=== PATIENT | female | born 1995 | race African-American/Black ===

== ENCOUNTER 2017-09-17 17:12 | Emergency (ER) | payer SELFPAY ==
[2017-09-17] MEDS ORDERED: ONDANSETRON 4 MG TAB.RAPDIS PO ONE (18:33)
--- NOTE | 2017-09-17 18:39 | ER Document Report ---
ED Medical Screen (RME) - General Chief Complaint: Nausea/Vomiting Stated Complaint: NAUSEA,VOMITING,BACK PAIN Time Seen by Provider: 09/17/17 18:33 Notes: 22-year-old female here with complaints of nausea vomiting intermittent headaches back pain lightheadedness lower abdominal sharp cramping (intermittent ) urinary frequency ongoing for the past 2 weeks. She thought she may be so she took 2 home tests that were negative. She then went to the resource center and they performed another urine test which was negative so they told the patient that she would probably need further evaluation. The patient has not taken anything for her symptoms. She is sexually active and thought she might be . She has been drinking plenty of fluids. She denies dysuria hematuria hesitancy. She has no prior pregnancies. TRAVEL OUTSIDE OF THE [place] IN LAST 30 DAYS: No - Related Data Allergies/Adverse Reactions: No Known Allergies Allergy (Verified 09/17/17 17:14) Past Medical History - Social History Chew tobacco use (# tins/day): No Frequency of alcohol use: Occasional Drug Abuse: None Pulmonary Medical History: Denies: Hx Tuberculosis Renal/ Medical History: Denies: Hx Peritoneal Dialysis GI Medical History: Reports: Hx Gastroesophageal Reflux Disease Past Surgical History: Reports: Hx Cholecystectomy. Denies: Hx Hysterectomy, Hx Pacemaker - Immunizations Immunizations up to date: Yes Hx Diphtheria, Pertussis, Tetanus Vaccination: Yes Review of Systems - Review of Systems Notes: See history of present illness for pertinent positive review of systems; otherwise all review of systems have been reviewed and are negative Physical Exam - Vital signs Vitals: Temp Pulse Resp BP Pulse Ox 97.8 F 72 16 123/70 99 09/17/17 17:21 09/17/17 17:21 09/17/17 17:21 09/17/17 17:21 09/17/17 17:21 - Notes Notes: PHYSICAL EXAMINATION: GENERAL: Well-appearing and in no acute distress. HEAD: Atraumatic, normocephalic. EYES: Pupils equal round and reactive to light, extraocular movements intact, sclera anicteric, conjunctiva are normal. ENT: nares patent, oropharynx clear without exudates. Moist mucous membranes. NECK: Normal range of motion, supple without lymphadenopathy LUNGS: CTAB and equal. No wheezes rales or rhonchi. HEART: Regular rate and rhythm without murmurs ABDOMEN: Soft, no tenderness (at this time). No facial grimacing/wincing upon palpation. No guarding, no rebound. EXTREMITIES: Normal range of motion, no pitting edema. No cyanosis. NEUROLOGICAL: Cranial nerves grossly intact. Normal sensory/motor exams. PSYCH: Normal mood, normal affect. SKIN: Warm, Dry, normal turgor, no rashes or lesions noted Course - Re-evaluation Re-evalutation: 09/17/17 18:38 MEDICAL DECISION MAKING: Concern for electrolyte imbalance versus UTI versus incidental I discussed with the patient would be more than happy to perform blood work and urine testing However, she does not want to stay since it would take more than an hour She is agreeable to administration of Zofran and receiving prescription Will prescribe Zofran and instructed follow-up PCP and/or CODING SPECIALIST Also discussed we are more than happy to see her again if she decides that she wants to come back Patient understands and agrees to the plan of care - Vital Signs Vital signs: Temp Pulse Resp BP Pulse Ox 97.8 F 72 16 123/70 99 09/17/17 17:21 09/17/17 17:21 09/17/17 17:21 09/17/17 17:21 09/17/17 17:21 Doctor's Discharge - Discharge Clinical Impression: Nausea & vomiting Qualifiers: Vomiting type: unspecified Vomiting Intractability: non-intractable Qualified Code(s): R11.2 - Nausea with vomiting, unspecified Condition: Good Disposition: HOME, SELF-CARE Additional Instructions: You were seen in the emergency department at [facility]. You declined blood work and urine testing. Use the prescribed medication as needed for nausea/vomiting. Use Tylenol as needed for pain. Please followup with your primary physician in the next few days for further management/evaluation. Please return to the emergency department for worsening of symptoms or any symptom that you deem to be concerning or life-threatening. Thank you for allowing us to be part of your care. Prescriptions: Ondansetron [Zofran Odt 4 mg Tablet] 1 tab PO Q4H PRN #7 tab.rapdis PRN Reason: For Nausea/Vomiting
[2017-09-17 18:42] VITALS: BP 120/64
== END 2017-09-17 18:39 | disposition home or self-care (01) ==
LOC: ER 17:12
DX: R11.2 Nausea with vomiting, unspecified (principal); R51 Headache; R42 Dizziness and giddiness; M54.9 Dorsalgia, unspecified; R10.30 Lower abdominal pain, unspecified; R35.0 Frequency of micturition; Z90.49 Acquired absence of other specified parts of digestive tract; Z87.19 Personal history of other diseases of the digestive system
CPT/HCPCS: 99283; S0119

== ENCOUNTER → 2017-11-02 | Outpatient (CLI) | payer OTHER ==
--- NOTE | 2017-11-02 10:53 | RADIOLOGY REPORT (SQ) ---
EXAM DESCRIPTION: U/S ABDOMEN COMPLETE W/DOPPLER COMPLETED DATE/TIME: 11/02/2017 9:50 am REASON FOR STUDY: NAUSEA RUQ PAIN R10.11 RIGHT UPPER QUADRANT PAIN R11.0 NAUSEA COMPARISON: CT abdomen pelvis 02/15/2015 Right upper quadrant ultrasound 02/02/2015 TECHNIQUE: Dynamic and static grayscale images acquired of the abdomen and recorded on PACS. Additio nal selected color Doppler and spectral images recorded. LIMITATIONS: Midline bowel gas, left upper quadrant bowel gas FINDINGS: PANCREAS: Midline pancreas unremarkable LIVER: No masses. Echotexture normal. LIVER VASCULATURE: Normal directional flow of the main portal vein and hepatic veins. GALLBLADDER: Surgically absent ULTRASOUND-DETECTED CARRASQUILLO'S SIGN: Not applicable INTRAHEPATIC DUCTS AND COMMON DUCT: CBD and intrahepatic ducts normal caliber. No filling defects. INFERIOR VENA CAVA: Normal flow. AORTA: No aneurysm. RIGHT KIDNEY: Normal size. Normal echogenicity. No solid or suspicious masses. No hydronephros is. No calcifications. LEFT KIDNEY: Not well seen due to left upper quadrant bowel gas. SPLEEN: Normal size. No solid masses. PERITONEAL AND PLEURAL SPACES: No ascites or effusions. OTHER: No other significant finding. IMPRESSION: Post cholecystectomy Poor visualization of the left kidney due to bowel gas. Otherwise unremarkable abdominal ultrasound. TECHNICAL DOCUMENTATION: JOB ID: [id number] [employer]- All Rights Reserved Reading location - IP/workstation name: [email or web address]
== END ==
LOC: RAD 09:23
PROVIDERS: ATTEND Physician Assistant
DX: R10.11 Right upper quadrant pain (principal); R11.0 Nausea
CPT/HCPCS: 76700; 93976

== ENCOUNTER → 2017-12-14 | Outpatient (CLI) | payer OTHER ==
--- NOTE | 2017-12-14 11:04 | RADIOLOGY REPORT (SQ) ---
EXAM DESCRIPTION: MRI ABDOMEN WITHOUT COMPLETED DATE/TIME: 12/14/2017 8:39 am REASON FOR STUDY: *MRCP* ABN LFT (R94.5), RUQ PAIN (R10.11) R94.5 ABNORMAL RESULTS OF LIVER FUNCTIO N STUDIES R10.11 RIGHT UPPER QUADRANT PAIN COMPARISON: CT ABDOMEN PELVIS 02/15/2015 ABDOMINAL ULTRASOUND 11/02/2017 TECHNIQUE: Noncontrast MRCP. Source and MIP images reviewed. LIMITATIONS: None. FINDINGS: GALLBLADDER: Surgically absent INTRAHEPATIC DUCTS: Nondilated. On the MRCP re- projected images, irregularity of the right and left intrahepatic ducts is present, with a stricture at the confluence of the right and left hepatic duct s, and a stricture at the common hepatic duct. Question sclerosing cholangitis. EXTRAHEPATIC DUCTS: Common duct is normal caliber. No dilatation of the pancreatic duct. No ductal filling defects noted. PANCREAS: Generally homogeneous, no gross mass or significant signal alteration. No surrounding infl ammatory changes or fluid. Pancreatic duct is normal. LIVER, SPLEEN, KIDNEYS, ADRENALS: No significant abnormality. VESSELS: No evidence of aneurysm. Grossly appropriate flow voids in the major vascular structures. LUNG BASES: Grossly clear. OTHER: No other significant finding. IMPRESSION: Focal narrowing of the intrahepatic bile ducts at the confluence of the right and left h epatic ducts, and along the mid common hepatic duct. Question sclerosing cholangitis. No common bile duct filling defects worrisome for retained stones. No common duct or pancreatic duct al dilatation. No significant intrahepatic biliary ductal dilatation. TECHNICAL DOCUMENTATION: JOB ID: [id number] [employer]- All Rights Reserved Reading location - IP/workstation name: [email or web address]
== END ==
LOC: RAD 07:30
PROVIDERS: ATTEND Internal Medicine Gastroenterology
DX: R94.5 Abnormal results of liver function studies (principal); R10.11 Right upper quadrant pain
CPT/HCPCS: 74181